=== PATIENT | male | born 1980 | race Caucasian/White ===

== ENCOUNTER 2019-04-28 09:29 | Emergency (ER) | payer OTHER ==
--- NOTE | 2019-04-28 10:03 | RAD REPORT ---
EXAM DESCRIPTION: RAD - Chest Pa And Lat (2 Views) - 04/28/2019 9:59 am CLINICAL HISTORY: Cough;Fever Chest pain. COMPARISON: No comparisons FINDINGS: The lungs are clear. The heart is normal in size. No displaced fractures. IMPRESSION: No acute or concerning finding suspected.
[2019-04-28] MEDS ORDERED: ACETAMINOPHEN 500 MG TAB ONE (10:09)
[2019-04-28] MEDS ORDERED: HYDROCODONE/APAP 5/325 MG TAB ONE (10:09)
[2019-04-28 11:11] LABS: Absolute Lymphocytes (CBC) 0.7 K/uL (0.7-4.9); Basophils % 0.3 % (0-1.3); Hematocrit 45.2 % (39.6-49.0); Lymphocytes % 9.2 % (15.3-44.8); MPV 7.3 fL (7.6-11.3); RBC Red Blood Cell Count 5.26 M/uL (4.33-5.43)
[2019-04-28] MEDS ORDERED: NA CHLORIDE 0.9% 1,000 ML ONE ×2 (11:24→12:31)
[2019-04-28 11:25] LABS: Potassium 3.5 mmol/L (3.5-5.1)
--- NOTE | 2019-04-28 13:03 | EDPHYS ---
Physician Documentation [facility] Name: Orlin Perez Age: 38 yrs Sex: Male : 1980 Arrival Date: 04/28/2019 Time: 09:32 Bed 6 Private MD: ED Physician Ori Mcneal HPI: 04/28 10:09 This 38 yrs old Male presents to ER via Ambulatory with complaints of Cough, snw Congestion, Fever. 10:09 The patient or guardian reports cough, flu symptoms, low-grade fever, myalgias, no snw appetite. Onset: The symptoms/episode began/occurred acutely. Severity of symptoms: At their worst the symptoms were moderate. Associated signs and symptoms: Pertinent positives: fever, sore throat. The patient has not experienced similar symptoms in the past. The patient has not recently seen a physician. Historical: - Allergies: 09:34 No Known Allergies; aa5 - Home Meds: 09:34 None [Active]; aa5 - PMHx: 09:34 None; aa5 - PSHx: 09:34 None; aa5 - Immunization history:: Flu vaccine is not up to date. - Social history:: Smoking status: Patient/guardian denies using tobacco. - Ebola Screening: : No symptoms or risks identified at this time. ROS: 10:08 Eyes: Negative for injury, pain, redness, and discharge. snw 10:08 Neck: Negative for injury, pain, and swelling, Cardiovascular: Negative for chest pain, palpitations, and edema. 10:08 Abdomen/GI: Negative for abdominal pain, nausea, vomiting, diarrhea, and constipation, Back: Negative for injury and pain, : Negative for injury, bleeding, discharge, and swelling, MS/Extremity: Negative for injury and deformity, Skin: Negative for injury, rash, and discoloration, Neuro: Negative for headache, weakness, numbness, tingling, and seizure. 10:08 Constitutional: Positive for body aches, fatigue, fever, malaise, poor PO intake. 10:08 ENT: Positive for sore throat. 10:08 Respiratory: Positive for cough, with rust-colored sputum. Exam: 10:08 Head/Face: Normocephalic, atraumatic. Eyes: Pupils equal round and reactive to light, snw extra-ocular motions intact. Lids and lashes normal. Conjunctiva and sclera are non-icteric and not injected. Cornea within normal limits. Periorbital areas with no swelling, redness, or edema. ENT: Nares patent. No nasal discharge, no septal abnormalities noted. Tympanic membranes are normal and external auditory canals are clear. Oropharynx with no redness, swelling, or masses, exudates, or evidence of obstruction, uvula midline. Mucous membranes moist. Neck: Trachea midline, no thyromegaly or masses palpated, and no cervical lymphadenopathy. Supple, full range of motion without nuchal rigidity, or vertebral point tenderness. No Meningismus. Chest/axilla: Normal chest wall appearance and motion. Nontender with no deformity. No lesions are appreciated. 10:08 Respiratory: Lungs have equal breath sounds bilaterally, clear to auscultation and percussion. No rales, rhonchi or wheezes noted. No increased work of breathing, no retractions or nasal flaring. Abdomen/GI: Soft, non-tender, with normal bowel sounds. No distension or tympany. No guarding or rebound. No evidence of tenderness throughout. Back: No spinal tenderness. No costovertebral tenderness. Full range of motion. Skin: Warm, dry with normal turgor. Normal color with no rashes, no lesions, and no evidence of cellulitis. MS/ Extremity: Pulses equal, no cyanosis. Neurovascular intact. Full, normal range of motion. Neuro: Awake and alert, GCS 15, oriented to person, place, time, and situation. Cranial nerves II-XII grossly intact. Motor strength 5/5 in all extremities. Sensory grossly intact. Cerebellar exam normal. Normal gait. Psych: Awake, alert, with orientation to person, place and time. Behavior, mood, and affect are within normal limits. 10:08 Constitutional: The patient appears alert, awake, anxious, frail. 10:08 Cardiovascular: Rate: tachycardic, actual rate is 122 bpm, Rhythm: regular, Pulses: no pulse deficits are appreciated. Vital Signs: 09:33 BP 136 / 94; Pulse 122; Resp 20 S; Temp 99.8(O); Pulse Ox 98% on R/A; Pain 1/10; aa5 11:18 BP 112 / 82; Pulse 120; Resp 18 S; Temp 99.5(O); Pulse Ox 97% on R/A; aa5 11:34 Pulse 98; Resp 18 S; Pulse Ox 97% on R/A; aa5 12:15 Pulse 100; Resp 16 S; Temp 99.6(O); Pulse Ox 98% on R/A; aa5 13:15 BP 114 / 83; Pulse 98; Resp 16 S; Temp 99.0(O); Pulse Ox 97% on R/A; Pain 0/10; aa5 MDM: 09:41 Patient medically screened. snw 13:03 Data reviewed: vital signs, nurses notes. Data interpreted: Pulse oximetry: on room air snw is 98 %. Interpretation: normal. Counseling: I had a detailed discussion with the patient and/or guardian regarding: the historical points, exam findings, and any diagnostic results supporting the discharge/admit diagnosis, the presence of at least one elevated blood pressure reading (>120/80) during this emergency department visit, lab results, radiology results, the need for outpatient follow up, to return to the emergency department if symptoms worsen or persist or if there are any questions or concerns that arise at home. Special discussion: Based on the history and exam findings, there is no indication for further emergent testing or inpatient evaluation. I discussed with the patient/guardian the need to see the primary care provider for further evaluation of the symptoms. 04/28 09:42 Order name: Flu; Complete Time: 10:35 snw 04/28 09:42 Order name: Strep; Complete Time: 10:50 snw 04/28 10:52 Order name: Throat Culture EDIL 04/28 10:51 Order name: Basic Metabolic Panel; Complete Time: 11:30 snw 04/28 10:51 Order name: CBC with Diff; Complete Time: 11:30 snw 04/28 10:51 Order name: Blood Culture Adult (2) snw 04/28 09:42 Order name: Chest Pa And Lat (2 Views) XRAY; Complete Time: 10:07 snw 04/28 10:51 Order name: Labs collected and sent; Complete Time: 11:20 snw Administered Medications: 09:53 Drug: [place] 5 mg-325 mg 1 tabs Route: PO; aa5 12:15 Follow up: Response: No adverse reaction aa5 09:53 Drug: Tylenol 500 mg Route: PO; aa5 12:15 Follow up: Response: No adverse reaction aa5 11:02 Drug: NS 0.9% 1000 ml Route: IV; Rate: 1 bolus; Site: right antecubital; aa5 12:10 Follow up: IV Status: Completed infusion; IV Intake: 1000ml aa5 12:15 Drug: NS 0.9% 1000 ml Route: IV; Rate: 1 bolus; Site: right antecubital; aa5 13:15 Follow up: IV Status: Completed infusion; IV Intake: 1000ml aa5 Disposition: 16:58 Co-signature as Attending Physician, Ori Mcneal MD I agree with the assessment and kdr plan of care. Disposition: 04/28/19 13:02 Discharged to Home. Impression: Acute bronchitis, Fever, unspecified. - Condition is Stable. - Discharge Instructions: Acute Bronchitis, Adult, Fever, Adult, Cough, Adult, Rehydration, Adult. - Prescriptions for Zyrtec 10 mg Oral Tablet - take 1 tablet by ORAL route once daily As needed; 20 tablet. Tessalon Perles 100 mg Oral Capsule - take 1 capsule by ORAL route every 8 hours As needed; 15 capsule. Prednisone 20 mg Oral Tablet - take 2 tablet by ORAL route once daily for 5 days; 10 tablet. - Work release form, Medication Reconciliation Form, Thank You Letter, Antibiotic Education, Prescription Opioid Use form. - Follow up: Private Physician; When: 2 - 3 days; Reason: Recheck today's complaints, Continuance of care, Re-evaluation by your physician. Follow up: Emergency Department; When: As needed; Reason: Worsening of condition. Signatures: Dispatcher [employer] EDIL Ori Mcneal MD MD kdr Therrien, Shelly, FNP-Maggie STEELE-Hortencia Lopez, RN RN aa5 Corrections: (The following items were deleted from the chart) 13:31 13:02 04/28/2019 13:02 Discharged to Home. Impression: Acute bronchitis; Fever, aa5 unspecified. Condition is Stable. Discharge Instructions: Acute Bronchitis, Adult, Fever, Adult, Cough, Adult, Rehydration, Adult. Prescriptions for Zyrtec 10 mg Oral Tablet - take 1 tablet by ORAL route once daily As needed; 20 tablet, Tessalon Perles 100 mg Oral Capsule - take 1 capsule by ORAL route every 8 hours As needed; 15 capsule, Prednisone 20 mg Oral Tablet - take 2 tablet by ORAL route once daily for 5 days; 10 tablet. and Forms are Work release form, Medication Reconciliation Form, Thank You Letter, Antibiotic Education, Prescription Opioid Use. Follow up: Private Physician; When: 2 - 3 days; Reason: Recheck today's complaints, Continuance of care, Re-evaluation by your physician. Follow up: Emergency Department; When: As needed; Reason: Worsening of condition. snw
--- NOTE | 2019-04-28 13:03 | ER ---
Nurse's Notes [facility] Name: Orlin Perez Age: 38 yrs Sex: Male : 1980 Arrival Date: 04/28/2019 Time: 09:32 Bed 6 Private MD: Diagnosis: Acute bronchitis;Fever, unspecified Presentation: 04/28 09:33 Presenting complaint: Patient states: "I had a scratchy throat on Saturday but then I aa5 felt fine but yesterday I woke up with a cough and fever". Pt reports "brownish phlegm", chest pain with cough, and fever up to 101.8 F. 09:33 Acuity: JANINE 3 aa5 09:33 Transition of care: patient was not received from another setting of care. [facility] 09:33 Method Of Arrival: Ambulatory [facility] 09:33 Onset of symptoms was April 27, 2019. Risk Assessment: Do you want to hurt yourself or aa5 someone else? Patient reports no desire to harm self or others. Care prior to arrival: None. 09:33 Initial Sepsis Screen: Does the patient meet any 2 criteria? HR > 90 bpm. Does the aa5 patient have a suspected source of infection? No. Patient's initial sepsis screen is negative. Historical: - Allergies: 09:34 No Known Allergies; aa5 - Home Meds: 09:34 None [Active]; aa5 - PMHx: 09:34 None; aa5 - PSHx: 09:34 None; aa5 - Immunization history:: Flu vaccine is not up to date. - Social history:: Smoking status: Patient/guardian denies using tobacco. - Ebola Screening: : No symptoms or risks identified at this time. Screenin:43 Abuse screen: Denies threats or abuse. Nutritional screening: No deficits noted. aa5 Tuberculosis screening: No symptoms or risk factors identified. Fall Risk None identified. Assessment: 09:40 General: Appears comfortable, Behavior is calm, cooperative. Pain: Complains of pain in aa5 mid-sternal area Pain does not radiate. Pain currently is 1 out of 10 on a pain scale. Quality of pain is described as aching, Pain began 1 day ago. Is intermittent. Neuro: Level of Consciousness is awake, alert, obeys commands, Oriented to person, place, time, situation. Cardiovascular: Heart tones S1 S2 present Capillary refill < 3 seconds is brisk in bilateral fingers Rhythm is regular. Respiratory: Reports cough that is productive, Airway is patent Respiratory effort is even, unlabored, Respiratory pattern is regular, symmetrical, Breath sounds are clear bilaterally. GI: No signs and/or symptoms were reported involving the gastrointestinal system. : No signs and/or symptoms were reported regarding the genitourinary system. EENT: No signs and/or symptoms were reported regarding the EENT system. Derm: Skin is pink, warm \\T\\ dry. Musculoskeletal: Range of motion: intact in all extremities. 11:00 Reassessment: Patient is alert, oriented x 3, equal unlabored respirations, skin aa5 warm/dry/pink. Patient denies pain at this time. Patient states feeling better. Pt notified of wait time for lab results. . 12:10 Reassessment: Patient is alert, oriented x 3, equal unlabored respirations, skin aa5 warm/dry/pink. Patient denies pain at this time. Pt ambulatory to restroom. 13:15 Reassessment: Pt ambulatory to restroom . aa5 13:25 Reassessment: Patient is alert, oriented x 3, equal unlabored respirations, skin aa5 warm/dry/pink. Patient denies pain at this time. Vital Signs: 09:33 BP 136 / 94; Pulse 122; Resp 20 S; Temp 99.8(O); Pulse Ox 98% on R/A; Pain 1/10; aa5 11:18 BP 112 / 82; Pulse 120; Resp 18 S; Temp 99.5(O); Pulse Ox 97% on R/A; aa5 11:34 Pulse 98; Resp 18 S; Pulse Ox 97% on R/A; aa5 12:15 Pulse 100; Resp 16 S; Temp 99.6(O); Pulse Ox 98% on R/A; aa5 13:15 BP 114 / 83; Pulse 98; Resp 16 S; Temp 99.0(O); Pulse Ox 97% on R/A; Pain 0/10; aa5 ED Course: 09:32 Patient arrived in ED. as 09:33 Arm band placed on Patient placed in an exam room, on a stretcher. aa5 09:33 Patient has correct armband on for positive identification. Bed in low position. Call aa5 light in reach. Side rails up X 1. 09:39 Hortencia Reeves, PHI is Primary Nurse. aa5 09:41 Triage completed. aa5 09:41 [facility]ly [facility]-C [facility] snw 09:41 Ori Mcneal MD is Attending Physician. snw 09:52 Flu and/or RSV swab sent to lab. Strep swab sent to lab. aa5 09:56 Patient moved to radiology via wheelchair. 1 09:59 X-ray completed. Patient tolerated procedure well. Patient moved back from radiology. 1 10:02 Chest Pa And Lat (2 Views) XRAY In Process Unspecified. EDMS 11:00 Inserted saline lock: 18 gauge in right antecubital area, using aseptic technique. aa5 Blood collected. 11:00 Initial lab(s) drawn, by me, sent to lab. First set of blood cultures drawn by me. aa5 11:15 Second set of blood cultures drawn by me. aa5 13:25 No provider procedures requiring assistance completed. IV discontinued, intact, aa5 bleeding controlled, No redness/swelling at site. Pressure dressing applied. Administered Medications: 09:53 Drug: Celina 5 mg-325 mg 1 tabs Route: PO; aa5 12:15 Follow up: Response: No adverse reaction aa5 09:53 Drug: Tylenol 500 mg Route: PO; aa5 12:15 Follow up: Response: No adverse reaction aa5 11:02 Drug: NS 0.9% 1000 ml Route: IV; Rate: 1 bolus; Site: right antecubital; aa5 12:10 Follow up: IV Status: Completed infusion; IV Intake: 1000ml aa5 12:15 Drug: NS 0.9% 1000 ml Route: IV; Rate: 1 bolus; Site: right antecubital; aa5 13:15 Follow up: IV Status: Completed infusion; IV Intake: 1000ml aa5 Intake: 12:10 IV: 1000ml; Total: 1000ml. aa5 13:15 IV: 1000ml; Total: 2000ml. aa5 Outcome: 13:02 Discharge ordered by . snw 13:28 Discharged to home ambulatory, with friend. aa5 13:28 Condition: stable 13:28 Discharge instructions given to patient, Instructed on discharge instructions, follow up and referral plans. medication usage, Demonstrated understanding of instructions, follow-up care, medications, Prescriptions given X 3. 13:31 Patient left the ED. aa5 Signatures: Dispatcher [employer] EDMS Yarely Ryan, INFANT LEAD TEACHER-C INFANT LEAD TEACHER-Jerzyw Sarah Whyte 1 Kylie Bishop Audri, RN RN aa5
== END 2019-04-28 13:31 | disposition home or self-care (01) ==
LOC: ER 09:29
DX: J20.9 Acute bronchitis, unspecified (principal)
CPT/HCPCS: 36415; 71046; 80048; 85025; 87040; 87070; 87081; 87804; 96360; 96361; 99284; J7030

== ENCOUNTER 2025-05-25 18:08 | Emergency (ER) | payer OTHER ==
[2025-05-25] MEDS ORDERED: HYDROMORPHONE HCL 1 MG/ML INJ ONE (18:23)
[2025-05-25] MEDS ORDERED: ONDANSETRON 4 MG/2 ML VIAL ONE (18:23)
[2025-05-25 18:44] LABS: Absolute Lymphocytes (CBC) 0.8 K/uL (0.7-4.9); Hematocrit 38.3 % (39.6-49.0); Hemoglobin 12.5 g/dL (13.6-17.9); MCH 24.6 pg (27.0-35.0); MCHC 32.6 g/dL (32.0-36.0); MCV 75.6 fL (80-100); MPV 7.9 fL (7.6-11.3); Nucleated RBC Absolute Count 0.0 (0-0); Nucleated Red Blood Cells % 0.3 % (0-0); PT Prothrombin Time 13.7 SECONDS (10-13.0); Protime INR 1.22; RBC Red Blood Cell Count 5.06 M/uL (4.33-5.43); White Blood Count 8.10 thou/uL (4.3-10.9)
[2025-05-25 19:01] LABS: ALT/SGPT 15 U/L (16-61); AST/SGOT < 10 U/L (15-37); Albumin 3.5 g/dL (3.4-5.0); Albumin/Globulin Ratio 1.0 (1.1-1.8); Alkaline Phosphatase 147 U/L (45-117); Anion Gap 17.4 mEq/L (5.0-15.0); BUN Blood Urea Nitrogen 14 mg/dL (7-18); Bilirubin Indirect, Calculated 0.3 mg/dL (0.2-0.8); Globulin 3.5 g/dL (2.3-3.5); Glucose Level 157 mg/dL (74-106); Lipase 12 U/L (13-75); Magnesium 1.7 mg/dL (1.6-2.4); NT PRO-BNP 73 pg/mL (<125); Potassium 3.4 mEq/L (3.5-5.1); Troponin High Sensitivity 3.3 pg/mL (<58.9)
--- NOTE | 2025-05-25 20:02 | RAD REPORT ---
EXAMINATION: CT ABDOMEN AND PELVIS WITH CONTRAST CLINICAL INDICATION: Known colon cancer;Abd pain TECHNIQUE: CT abdomen and pelvis was performed, after the administration of IV contrast, [facility]. Axial, sagittal and coronal reconstructions were obtained. One or more of the following dose reduction techniques were used: Automated exposure control, adjustment of the mA and k V according to patient size, and iterative reconstruction. Unless otherwise specified, incidental findings do not require dedicated imaging follow-up. COMPARISON: No prior exam. FINDINGS: LOWER CHEST: The visualized lung bases are clear. Small hiatal hernia. LIVER: Multiple low-density hepatic lesions are present of varying size compatible with liver metasta ses. The largest is in the right lobe measuring 3.0 cm. Cholecystectomy clips. SPLEEN: Normal size. No focal lesion. PANCREAS: No mass, ductal dilation, or crystal-pancreatic fluid. ADRENALS: Normal; no mass. KIDNEYS: Normal size and contour. No hydronephrosis. Several benign cysts in both kidneys. GASTROINTESTINAL TRACT: Irregular mass in the mid descending colon causes luminal narrowing and signi ficant upstream retention stool in the colon. APPENDIX: Normal appendix. LYMPH NODES: No lymphadenopathy. MUSCULOSKELETAL: No acute or suspicious osseous abnormality. IMPRESSION: Irregular mass in the descending colon appears to cause partial colonic obstruction. Significant upst ream retention of stool is noted with thickening of the colon wall. Stercoral colitis likely. Liver metastatic disease.
[2025-05-25 20:28] LABS: Anisocytosis 3+; Blood Morphology Comment NOTED (NOT SEEN); White Blood Cell Scan OK (OK)
--- NOTE | 2025-05-25 20:33 | ER ---
Nurse's Notes [facility] Name: Orlin Perez Age: 44 yrs Sex: Male : 1980 Arrival Date: 05/25/2025 Time: 18:07 Bed 6 Private MD: Diagnosis: Acute partial colonic obstruction, descending colon neoplasm with partial colonic obstruction, metastatic colon cancer Presentation: 05/25 18:11 Chief complaint: EMS states: Bilateral flank pain and nausea 1 hr, vomit x 1. BP hb 110/60. HR 100, SpO2 100% on RA. Ofirmev 1gm, Zofran 4mg and NS 250 to 22g [employer]. Recently diagnosed with stage 4 colon CA, had RUC port placed last week, has not yet started chemo. Coronavirus screen: At this time, the client does not indicate any symptoms associated with coronavirus-19. Ebola Screen: No symptoms or risks identified at this time. Initial Sepsis Screen: Does the patient meet any 2 criteria? No. Patient's initial sepsis screen is negative. Does the patient have a suspected source of infection? No. Patient's initial sepsis screen is negative. Risk Assessment: Do you want to hurt yourself or someone else? Patient reports no desire to harm self or others. Onset of symptoms was May 25, 2025. 18:11 Method Of Arrival: EMS: [facility] 18:11 Acuity: JANINE 2 hb Triage Assessment: 18:16 General: Appears in no apparent distress. ill, Behavior is calm, cooperative. Pain: hb Pain currently is 4 out of 10 on a pain scale. EENT: No signs and/or symptoms were reported regarding the EENT system. Neuro: Level of Consciousness is awake, alert, obeys commands, Oriented to person, place, time, situation. Cardiovascular: Patient's skin is warm and dry. Respiratory: Respiratory effort is even, unlabored, Respiratory pattern is regular, symmetrical. GI: Reports nausea, vomiting. : No signs and/or symptoms were reported regarding the genitourinary system. Derm: Skin is diaphoretic, Skin is pale, Skin temperature is warm. Musculoskeletal: Reports bilateral flank pain. Historical: - Allergies: 18:15 No Known Allergies; hb - Home Meds: 18:15 Prozac 60 mg Oral daily [Active]; Potassium Chloride Oral [Active]; hb - PMHx: 18:15 depressive disorder; hb 18:16 Colon CA; hb - PSHx: 18:15 Cholecystectomy; hb - Immunization history:: Adult Immunizations up to date. - Infectious Disease History:: Denies. - Social history:: Smoking status: Patient denies any tobacco usage or history of. Screenin:17 [facility] ED Fall Risk Assessment (Adult) History of falling in the last 3 months, hb including since admission No falls in past 3 months (0 pts) Confusion or Disorientation No (0 pts) Intoxicated or Sedated No (0 pts) Impaired Gait No (0 pts) Mobility Assist Device Used No (0 pt) Altered Elimination No (0 pt) Score/Fall Risk Level 0 - 2 = Low Risk Oriented to surroundings, Maintained a safe environment, Educated pt \T\ family on fall prevention, incl call for assistance when getting out of bed. Abuse screen: Denies threats or abuse. Denies injuries from another. Nutritional screening: No deficits noted. Tuberculosis screening: No symptoms or risk factors identified. Assessment: 18:17 General: See triage assessment . hb 19:05 Reassessment: ASSUMED CARE OF PT. PT SITTING IN BED TALKING TO FAMILY/FRIENDS. PT jj7 STATES HIS PAIN IS BETTER. 3/10. NO PAIN WITH PALPATION. PT GIVEN A URINAL AND INFORMED URINE SAMPLE IS STILL NEEDED. VS STABLE. CALL BILLS IN REACH. General: Appears in no apparent distress. comfortable, Behavior is calm, cooperative, appropriate for age. : Reports pain in bilateral flank(s). 22:33 Reassessment: Patient is alert, oriented x 3, equal unlabored respirations, skin jj7 warm/dry/pink. Patient states feeling better. Patient states symptoms have improved. 23:09 Reassessment: PT REPORT GIVEN TO [facility]. jj7 23:41 Reassessment: Patient is alert, oriented x 3, equal unlabored respirations, skin jj7 warm/dry/pink. Patient states feeling better. Patient states symptoms have improved. 23:41 Reassessment: [facility] TO TRANSPORT PT. jj7 Vital Signs: 18:11 BP 96 / 79; Pulse 88; Resp 18; Temp 98.2; Pulse Ox 100% on R/A; Pain 4/10; hb 18:43 BP 109 / 76; Pulse 92; Resp 17; Pulse Ox 100% on R/A; hb 19:05 BP 108 / 73; Pulse 90; Resp 19; Pulse Ox 100% ; jj7 20:00 BP 119 / 78; Pulse 100; Resp 16; Pulse Ox 100% ; jj7 21:04 BP 121 / 79; Pulse 103; Resp 19; Pulse Ox 98% ; jj7 22:00 BP 116 / 78; Pulse 88; Resp 17; Pulse Ox 100% ; jj7 23:00 BP 127 / 89; Pulse 91; Resp 20; Pulse Ox 100% ; jj7 23:41 BP 110 / 77; Pulse 79; Resp 19; Temp 98.3; Pulse Ox 100% ; jj7 18:11 Pain Scale: Adult hb ED Course: 18:07 Patient arrived in ED. dr5 18:08 Bette Gillette MD is Attending Physician. sp3 18:14 Pancho Deshpande, RN is Primary Nurse. bp 18:15 Triage completed. hb 18:16 Arm band placed on. hb 18:17 Patient has correct armband on for positive identification. Bed in low position. Call hb light in reach. Provided Education on: call light. Client placed on continuous cardiac and pulse oximetry monitoring. NIBP monitoring applied. Pulse ox on. NIBP on. 18:28 EKG done, by ED staff, reviewed by Bette Gillette MD. hb 18:42 Maintain EMS IV. Dressing intact. Good blood return noted. Site clean \T\ dry. Gauge \T\ hb site: 22g LAC. Flushed with 10 mL NS. 19:08 Attending Physician role handed off by Bette Gillette MD sp4 19:08 David Mccall MD is Attending Physician. sp4 19:52 CT Abd/Pelvis - IV Contrast Only In Process Unspecified. EDMS 20:31 initiated transfer with [facility] pt was accepted to [facility] [address]. Accept[address] Dr. Zhu t [id number]. f Accepting admin Jennifer Trevino \T\[id number]. Number for nurse to nurse report [phone]. 23:43 No provider procedures requiring assistance completed. Patient transferred, IV remains jj7 in place. Administered Medications: 18:26 Drug: HYDROmorphone IVP 1 mg IVP once Route: IVP; Site: left antecubital; bp 22:34 Follow up: Response: Marked relief of symptoms jj7 18:26 Drug: Ondansetron IVP 4 mg IVP once; over 2 minutes Route: IVP; Site: left antecubital; bp 22:34 Follow up: Response: Marked relief of symptoms jj7 20:51 Drug: NS 0.9% IV 1000 ml IV at 125 ml/hr once; to be given at 125 ml/hour Route: IV; mf3 Rate: 125 ml/hr; Site: left antecubital; 23:43 Follow up: IV Status: Infusion continued upon transfer jj7 20:51 Drug: NS 0.9% IV 1000 ml IV at 1000 ml once; to be given as a bolus over 60 minutes mf3 Route: IV; Rate: 1000 ml; Site: left antecubital; 22:34 Follow up: IV Status: Completed infusion jj7 Medication: 18:17 VIS not applicable for this client. hb Outcome: 20:33 ER care complete, transfer ordered by MD. gomez 23:42 Transferred by ground EMS [facility]. to [facility], Transfer jj7 form completed. X-rays sent w/ patient. 23:42 Condition: improved 23:43 Patient left the ED. jj7 Signatures: Dispatcher [employer] EDMS Elida Cloud RN Pancho Sinha RN RN Bette Polo MD MD sp3 Estuardo Shrestha RN RN jj7 David Mccall MD MD sp4 Za [facility] Jose Juan Kelly, FIELD LIABILITY GENERALIST-C FIELD LIABILITY GENERALIST-Cdr5 Nellie Santiago RN RN mf3 Corrections: (The following items were deleted from the chart) 18:16 18:15 PMHx: Colon Cancer (depressive disorder); hb hb 18:19 18:11 Chief complaint: EMS states: Bilateral flank pain x 1 hr. BP 110/60. HR 100, SpO2 hb 100% on RA. Ofirmev 1gm, Zofran 4mg and NS 250 to 22g [employer]. Recently diagnosed with stage 4 colon CA, had RUC port placed last week, has not yet started chemo. hb 19:22 19:05 Reassessment: ASSUMED CARE OF PT. PT SITTING IN BED TALKING TO FAMILY/FRIENDS. PT jj7 STATES HIS PAIN IS BETTER. 12/14. NO PAIN WITH PALPATION. VS STABLE. CALL BILLS IN REACH jj7
--- NOTE | 2025-05-25 20:33 | EDPHYS ---
Physician Documentation [facility] Name: Orlin Preez Age: 44 yrs Sex: Male : 1980 Arrival Date: 05/25/2025 Time: 18:07 Bed 6 Private MD: ED Physician David Mccall HPI: 05/25 18:20 This 44 yrs old Male presents to ER via EMS with complaints of Flank Pain. sp3 18:20 44-year-old male with newly diagnosed colon cancer with recently placed chemotherapy sp3 port who starts chemotherapy and radiation next week presents via EMS for ongoing right flank pain and abdominal pain. Patient states he feels extremely weak. He is on iron and potassium as well. EMS reports vital signs are within normal limits. Patient denies any fever, headache, chest pain, shortness of breath, vomiting, diarrhea, syncope, bleeding, or any other signs or symptoms on ROS at this time.. 19:45 Old record review from 04/27/2025 CT - IMPRESSION: Mass at the descending colon sp4 consistent with a colonic neoplasm. Lesions in the right and left hepatic lobe suspicious for metastatic disease. MRI could better evaluate the liver lesions. No evidence of active gastric intestinal bleeding however the colonic mass does have some prominent arterial feeders. Upstream colonic distention with stool likely reflecting a partial colonic obstruction. Recommend surgical consultation. . 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 Associated with 1 episode of vomiting. Patient last [facility] oncologic workup at [facility] with liver biopsy. Patient also had further port placement is scheduled to receive chemotherapy. . Historical: - Allergies: 18:15 No Known Allergies; hb - Home Meds: 18:15 Prozac 60 mg Oral daily [Active]; Potassium Chloride Oral [Active]; hb - PMHx: 18:15 depressive disorder; hb 18:16 Colon CA; hb - PSHx: 18:15 Cholecystectomy; hb - Immunization history:: Adult Immunizations up to date. - Infectious Disease History:: Denies. - Social history:: Smoking status: Patient denies any tobacco usage or history of. ROS: 18:21 Constitutional: Negative for fever, chills, and weight loss, Eyes: Negative for injury, sp3 pain, redness, and discharge, ENT: Negative for injury, pain, and discharge, Neck: Negative for injury, pain, and swelling, Cardiovascular: Negative for chest pain, palpitations, and edema, Respiratory: Negative for shortness of breath, cough, wheezing, and pleuritic chest pain, Back: Negative for injury and pain, MS/Extremity: Negative for injury and deformity, Skin: Negative for injury, rash, and discoloration, Neuro: Negative for headache, weakness, numbness, tingling, and seizure, Psych: Negative for depression, anxiety, suicide ideation, homicidal ideation, and hallucinations, Allergy/Immunology: Negative for hives, rash, and allergies, Endocrine: Negative for neck swelling, polydipsia, polyuria, polyphagia, and marked weight changes, 18:21 All other systems are negative, Exam: 18:21 Constitutional: This is a well developed, well nourished patient who is awake, alert, sp3 and in no acute distress. Head/Face: Normocephalic, atraumatic. Eyes: Pupils equal round and reactive to light, extra-ocular motions intact. Lids and lashes normal. Conjunctiva and sclera are non-icteric and not injected. Cornea within normal limits. Periorbital areas with no swelling, redness, or edema. Neck: Trachea midline, no thyromegaly or masses palpated, and no cervical lymphadenopathy. Supple, full range of motion without nuchal rigidity, or vertebral point tenderness. No Meningismus. Chest/axilla: Normal chest wall appearance and motion. Nontender with no deformity. No lesions are appreciated. Cardiovascular: Regular rate and rhythm with a normal S1 and S2. No gallops, murmurs, or rubs. Normal PMI, no JVD. No pulse deficits. Respiratory: Lungs have equal breath sounds bilaterally, clear to auscultation and percussion. No rales, rhonchi or wheezes noted. No increased work of breathing, no retractions or nasal flaring. Back: No spinal tenderness. No costovertebral tenderness. Full range of motion. Skin: Warm, dry with normal turgor. Normal color with no rashes, no lesions, and no evidence of cellulitis. MS/ Extremity: Pulses equal, no cyanosis. Neurovascular intact. Full, normal range of motion. Neuro: Awake and alert, GCS 15, oriented to person, place, time, and situation. Cranial nerves II-XII grossly intact. Motor strength 5/5 in all extremities. Sensory grossly intact. Cerebellar exam normal. Normal gait. Psych: Awake, alert, with orientation to person, place and time. Behavior, mood, and affect are within normal limits. 18:21 Abdomen/GI: Diffuse pain to palpation without peritoneal signs, rebound or guarding. Vital signs are within normal limits with BP 96/79. Patient skin is pale., 18:36 ECG was reviewed by the Attending Physician. EKG demonstrates normal sinus rhythm at 94 sp3 bpm with normal intervals except QTc 487, normal axis, normal QRS and nonspecific ST/T changes without evidence of acute ischemia. Vital Signs: 18:11 BP 96 / 79; Pulse 88; Resp 18; Temp 98.2; Pulse Ox 100% on R/A; Pain 4/10; hb 18:43 BP 109 / 76; Pulse 92; Resp 17; Pulse Ox 100% on R/A; hb 19:05 BP 108 / 73; Pulse 90; Resp 19; Pulse Ox 100% ; jj7 20:00 BP 119 / 78; Pulse 100; Resp 16; Pulse Ox 100% ; jj7 21:04 BP 121 / 79; Pulse 103; Resp 19; Pulse Ox 98% ; jj7 22:00 BP 116 / 78; Pulse 88; Resp 17; Pulse Ox 100% ; jj7 23:00 BP 127 / 89; Pulse 91; Resp 20; Pulse Ox 100% ; jj7 23:41 BP 110 / 77; Pulse 79; Resp 19; Temp 98.3; Pulse Ox 100% ; jj7 18:11 Pain Scale: Adult hb MDM: 18:08 Medical Screening Exam initiated sp3 18:22 Data reviewed: vital signs, nurses notes, lab test result(s), radiologic studies. ED sp3 course: 44-year-old male with newly diagnosed colon cancer with abdominal pain, flank pain and generalized weakness. Differential diagnosis includes cancer related pain, other intra-abdominal pathology including colonic obstruction, anemia, mass educed pain, adhesions, biliary or gastric pathology, pancreatitis, UTI/kidney stone, among others. Workup will include CT scan of abdomen pelvis with IV contrast, general labs, UA, pain and nausea control, and general supportive care. Disposition pending workup and patient course. Patient will likely need to be signed out to nighttime physician for final reevaluation and disposition.. 19:48 Differential diagnosis: nephrolithiasis, pyelonephritis, UTI, diverticulitis, sp4 pancreatitis. Consideration of Admission/Observation Escalation of care including admission/observation considered. ED course: Patient is currently awaiting on the CT abdomen pelvis per. 20:36 Management of patient was discussed with the following: Lacquer Sprayer: [facility] sp4 attending hospitalist.. ED course: COMPARISON: No prior exam. FINDINGS: LOWER CHEST: The visualized lung bases are clear. Small hiatal hernia. LIVER: Multiple low-density hepatic lesions are present of varying size compatible with liver metastases. The largest is in the right lobe measuring 3.0 cm. Cholecystectomy clips. SPLEEN: Normal size. No focal lesion. PANCREAS: No mass, ductal dilation, or crystal-pancreatic fluid. ADRENALS: Normal; no mass. KIDNEYS: Normal size and contour. No hydronephrosis. Several benign cysts in both kidneys. GASTROINTESTINAL TRACT: Irregular mass in the mid descending colon causes luminal narrowing and significant upstream retention stool in the colon. APPENDIX: Normal appendix. LYMPH NODES: No lymphadenopathy. MUSCULOSKELETAL: No acute or suspicious osseous abnormality. IMPRESSION: Irregular mass in the descending colon appears to cause partial colonic obstruction. Significant upstream retention of stool is noted with thickening of the colon wall. Stercoral colitis likely. Liver metastatic disease. . 05/25 18:09 Order name: Basic Metabolic Panel; Complete Time: 19:34 sp3 05/25 18:09 Order name: CBC with Diff; Complete Time: 20:43 sp3 05/25 18:09 Order name: LFT's; Complete Time: 19:34 sp3 05/25 18:09 Order name: Magnesium; Complete Time: 19:34 sp3 05/25 18:09 Order name: NT PRO-BNP; Complete Time: 19:34 sp3 05/25 18:09 Order name: PT-INR; Complete Time: 18:55 sp3 05/25 18:09 Order name: Troponin HS; Complete Time: 19:34 sp3 05/25 18:09 Order name: Lipase; Complete Time: 19:34 sp3 05/25 20:29 Order name: CBC Smear Scan; Complete Time: 20:43 EDMS 05/25 18:09 Order name: CT Abd/Pelvis - IV Contrast Only; Complete Time: 20:18 sp3 05/25 18:09 Order name: EKG; Complete Time: 18:10 sp3 05/25 18:09 Order name: Cardiac monitoring; Complete Time: 18:17 sp3 05/25 18:09 Order name: EKG - Nurse/Tech; Complete Time: 18:26 sp3 05/25 18:09 Order name: IV Saline Lock; Complete Time: 18:18 sp3 05/25 18:09 Order name: Labs collected and sent; Complete Time: 18:26 sp3 05/25 18:09 Order name: O2 Per Protocol; Complete Time: 18:18 sp3 05/25 18:09 Order name: O2 Sat Monitoring; Complete Time: 18:17 sp3 05/25 20:43 Order name: NPO; Complete Time: 20:45 sp4 Administered Medications: 18:26 Drug: HYDROmorphone IVP 1 mg IVP once Route: IVP; Site: left antecubital; bp 22:34 Follow up: Response: Marked relief of symptoms jj7 18:26 Drug: Ondansetron IVP 4 mg IVP once; over 2 minutes Route: IVP; Site: left antecubital; bp 22:34 Follow up: Response: Marked relief of symptoms jj7 20:51 Drug: NS 0.9% IV 1000 ml IV at 125 ml/hr once; to be given at 125 ml/hour Route: IV; mf3 Rate: 125 ml/hr; Site: left antecubital; 23:43 Follow up: IV Status: Infusion continued upon transfer jj7 20:51 Drug: NS 0.9% IV 1000 ml IV at 1000 ml once; to be given as a bolus over 60 minutes mf3 Route: IV; Rate: 1000 ml; Site: left antecubital; 22:34 Follow up: IV Status: Completed infusion jj7 Disposition Summary: 05/25/25 20:33 Transfer Ordered Notes: Transfer Location: [facility] sp4 Reason: Higher level of care sp4 Condition: Stable sp4 Problem: new sp4 Symptoms: have improved sp4 Accepting Physician: [facility] colorectal surgery(05/25/25 23:43) jj7 Diagnosis - Acute partial colonic obstruction, descending colon neoplasm with partial colonic sp4 obstruction, metastatic colon cancer Discharge Instructions: - Discharge Summary Sheet sp3 - Neck Contusion sp3 Forms: - Medication Reconciliation Form sp4 - SBAR form sp4 Signatures: Dispatcher [employer] EDElida Macias RN RN Pancho Deshpande RN RN Bette Gillette MD MD sp3 Estuardo Shrestha RN RN jj7 David Mccall MD MD sp4 Nellie Santiago RN RN mf3 Corrections: (The following items were deleted from the chart) 18:16 18:15 PMHx: Colon Cancer (depressive disorder); [facility] 23:43 20:33 [facility] colorectal surgery sp4 jj7
[2025-05-25] MEDS ORDERED: NA CHLORIDE 0.9% 2,000 ML ONE (20:47)
[2025-05-26 03:56] VITALS: O2SAT 100
[2025-05-26 03:59] VITALS: BP 110/77; TEMP 98.3
== END 2025-05-25 23:43 | disposition short-term general hospital (02) ==
LOC: ER 18:08
DX: C18.4 Malignant neoplasm of transverse colon (principal); K56.600 Partial intestinal obstruction, unspecified as to cause; C78.7 Secondary malignant neoplasm of liver and intrahepatic bile duct
CPT/HCPCS: 93005; 85025; 80048; 36415; 83735; 85610; 80076; 84484; 83690; 83880; 74177; Q9967; J1171; J2405; J7030